=== PATIENT | female | born 1990 | race American Indian/Alaskan Native ===

== ENCOUNTER 2020-12-20 11:44 | Emergency (ER) | payer OTHER ==
--- NOTE | 2020-12-20 13:35 | Emergency Department Report ---
Blank Doc - Documentation Documentation: [facility] Consult Note # Demographics Consult Type: Acute Stroke Level 2 (4.5-24 hrs) Patient Location: Emergency Room First Name: Danita Last Name: Trav Date of : 1990 Age: 30 Gender: Female Time of Initial Page ( Time): 12/20/2020, 13:00 Time of Return Call ( Time): 12/20/2020, 13:01 # HPI History: 30yo F presents after being at a different hospital yesterday fo left arm numbness and gen weakness. CT done, then d/c. diagnosed with anxiety. then today was noted to "go limp". having left sided weakness and numbness, dysarthria. pt reprots she felt like she was having difficulty breathing. she had a headache. Last Known Normal: I have collected independent history specific to time last normal or last known well. We have collaborated with the provider and at this time, we have the most current timeline with the information that is available. # Scores Time of exam and NIHSS (): 12/20/2020, 13:27 Level of Consciousness 1a: [0] = Alert; keenly responsive LOC Questions 1b: [0] = Answers both questions correctly LOC Commands 1c: [0] = Performs both tasks correctly Best Gaze 2: [0] = Normal Visual 3: [0] = No visual loss Facial Palsy 4: [2] = Partial paralysis Motor Arm Left 5a: [2] = Some effort against gravity Motor Arm Right 5b: [0] = No drift Motor Leg Left 6a: [2] = Some effort against gravity Motor Leg Right 6b: [0] = No drift Limb Ataxia 7: [0] = Absent Sensory 8: [1] = [id number] sensory loss Best Language 9: [0] = No aphasia Dysarthria 10: [0] = Normal Extinction and Inattention 11: [0] = No abnormality NIHSS Total: 7 # Exam Motor: appears to given inconsistent effort in the left arm and leg. strong left leg pushing into the bed when lifting her right leg. # PMH-FH-SH Past Medical History: DVT/PE Medications: NOAC # Assessment Impression: Stroke Mimic this is not a TIA if MRI negative # Plan Thrombolytic/Intervention: NOT IV Thrombolytic or IA Intervention Thrombolytic Exclusion: > 4.5 hours Intraarterial Exclusion: clinically consistent with small vessel disease Imaging: (urgency: routine): MRI Brain with AND without contrast Other: would not pursue stroke work-up if MRI is negative I have discussed my recommendations with the referring provider Additional Recommendations: Further work-up based on MRI results # Logistics Telemedicine: Interactive 2 way audio and visual telecommunication technology was utilized during this visit
[2020-12-20 14:39] LABS: Bilirubin,Urine NEG (Negative); Blood,Urine LG (Negative); Color,Urine Yellow (Yellow); Hyaline Casts,Urine 1 /LPF; Mucus,Urine FEW /HPF; Urobilinogen,Urine < 2.0 mg/dL (<2.0)
--- NOTE | 2020-12-20 15:24 | Emergency Department Report ---
HPI - General Chief Complaint: Abdominal Pain Time Seen by Provider: 12/20/20 12:38 - HPI HPI: This is a 30-year-old female presents to the emergency department with complaint of a 1 day history of vaginal bleeding, some mild pelvic cramping, and some [place] with an episode of vomiting, all while . Patient says that she found out on Friday from a home test and then had the confirmed in a clinic. She just recently obtained an [facility] [employer] [employer] but has not yet established care with them and cannot remember their name currently. With this she is G1, P0. She has a past medical history of some mild asthma. She has not taken anything for symptoms prior to presentation today. ED Past Medical Hx - Past Medical History Previous Medical History?: No - Surgical History Past Surgical History?: No - Social History Smoking Status: Never Smoker Substance Use Type: None - Medications Home Medications: Home Medications Medication Instructions Recorded Confirmed Last Taken Type Nitrofurantoin [place]/M-Cryst 100 mg PO Q12HR #14 capsule 12/20/20 Unknown Rx [Macrobid CAP] ED Review of Systems ROS: Stated complaint: POSS MISCARRIAGE Other details as noted in HPI Comment: All other systems reviewed and negative Constitutional: denies: chills, fever Eyes: denies: eye pain, vision change ENT: denies: ear pain, throat pain Respiratory: denies: cough, shortness of breath Cardiovascular: denies: chest pain, palpitations Gastrointestinal: nausea, vomiting Genitourinary: other (Pelvic cramping, vaginal bleeding) Musculoskeletal: denies: back pain, arthralgia Skin: denies: rash, lesions Neurological: denies: headache, weakness Physical Exam - Physical Exam Vital Signs: Vital Signs 12/20/20 12/20/20 12/20/20 12:05 12:07 12:09 Temperature 98.3 F Pulse Rate 117 H Respiratory 18 Rate Blood Pressure 151/104 Blood Pressure 151/104 [Right] O2 Sat by Pulse 100 Oximetry Physical Exam: GENERAL: The patient is well-developed well-nourished. HENT: Normocephalic. Atraumatic. Patient has moist mucous membranes. EYES: Extraocular motions are intact. NECK: Supple. Trachea is midline. CHEST/LUNGS: Clear to auscultation. There is no respiratory distress noted. HEART/CARDIOVASCULAR: Regular. There is no tachycardia. There is no murmur. ABDOMEN: Abdomen is soft, nontender. Patient has normal bowel sounds. Obese habitus. SKIN: Skin is warm and dry. NEURO: The patient is awake, alert, and oriented. The patient is cooperative. The patient has no focal neurologic deficits. Normal speech. MUSCULOSKELETAL: There is no tenderness or deformity. There is no limitation range of motion. ED Course Vital Signs 12/20/20 12/20/20 12/20/20 12:05 12:07 12:09 Temperature 98.3 F Pulse Rate 117 H Respiratory 18 Rate Blood Pressure 151/104 Blood Pressure 151/104 [Right] O2 Sat by Pulse 100 Oximetry - Consultations Consultation #1: 12/20/20 16:24 Spoke to the [employer] on-call, Dr. Kyle, regarding the patient's presentation, the beta-hCG, and the patient's ultrasound findings concerning for a left-sided adnexal ectopic. He says to proceed with methotrexate and that the patient will need to follow-up on day 4 and day 7 outpatient for repeat beta-hCG and reevaluation's. ED Medical Decision Making - Lab Data Result diagrams: 12/20/20 15:24 12/20/20 15:24 Lab Results 12/20/20 12/20/20 12/20/20 Range/Units 13:47 15:24 15:24 WBC 11.4 H (4.5-11.0) K/mm3 RBC 4.37 (3.65-5.03) M/mm3 Hgb 11.9 (10.1-14.3) gm/dl Hct 36.0 (30.3-42.9) % MCV 82 (79-97) fl MCH 27 L (28-32) pg MCHC 33 (30-34) % RDW 13.9 (13.2-15.2) % Plt Count 268 (140-440) K/mm3 Lymph % (Auto) 8.6 L (13.4-35.0) % [place] % (Auto) 3.2 (0.0-7.3) % Eos % (Auto) 0.1 (0.0-4.3) % Baso % (Auto) 0.3 (0.0-1.8) % Lymph # (Auto) 1.0 L (1.2-5.4) K/mm3 [place] # (Auto) 0.4 (0.0-0.8) K/mm3 Eos # (Auto) 0.0 (0.0-0.4) K/mm3 Baso # (Auto) 0.0 (0.0-0.1) K/mm3 Seg Neutrophils % 87.8 H (40.0-70.0) % Seg Neutrophils # 10.0 H (1.8-7.7) K/mm3 Sodium 138 (137-145) mmol/L Potassium 4.3 (3.6-5.0) mmol/L Chloride 102.5 (98-107) mmol/L Carbon Dioxide 25 (22-30) mmol/L Anion Gap 15 mmol/L BUN 8 (7-17) mg/dL Creatinine 0.6 (0.6-1.2) mg/dL Estimated GFR > 60 ml/min BUN/Creatinine Ratio 13 % Glucose 106 H (65-100) mg/dL Calcium 9.7 (8.4-10.2) mg/dL HCG, Quant (0-4) mIU/mL Urine Color Yellow (Yellow) Urine Turbidity Slightly-cloudy (Clear) Urine pH 7.0 (5.0-7.0) Ur Specific [place] 1.019 (1.003-1.030) Urine Protein 30 mg/dl (Negative) mg/dL Urine Glucose (UA) Neg (Negative) mg/dL Urine Ketones Tr (Negative) mg/dL Urine Blood Lg (Negative) Urine Nitrite Neg (Negative) Urine Bilirubin Neg (Negative) Urine Urobilinogen < 2.0 (<2.0) mg/dL Ur Leukocyte Esterase Mod (Negative) Urine WBC (Auto) 11.0 H (0.0-6.0) /HPF Urine RBC (Auto) 16.0 (0.0-6.0) /HPF U Epithel Cells (Auto) 9.0 (0-13.0) /HPF Hyaline Casts 1 /LPF Urine Mucus Few /HPF Blood Type 12/20/20 12/20/20 Range/Units 15:24 15:24 WBC (4.5-11.0) K/mm3 RBC (3.65-5.03) M/mm3 Hgb (10.1-14.3) gm/dl Hct (30.3-42.9) % MCV (79-97) fl MCH (28-32) pg MCHC (30-34) % RDW (13.2-15.2) % Plt Count (140-440) K/mm3 Lymph % (Auto) (13.4-35.0) % [place] % (Auto) (0.0-7.3) % Eos % (Auto) (0.0-4.3) % Baso % (Auto) (0.0-1.8) % Lymph # (Auto) (1.2-5.4) K/mm3 [place] # (Auto) (0.0-0.8) K/mm3 Eos # (Auto) (0.0-0.4) K/mm3 Baso # (Auto) (0.0-0.1) K/mm3 Seg Neutrophils % (40.0-70.0) % Seg Neutrophils # (1.8-7.7) K/mm3 Sodium (137-145) mmol/L Potassium (3.6-5.0) mmol/L Chloride (98-107) mmol/L Carbon Dioxide (22-30) mmol/L Anion Gap mmol/L BUN (7-17) mg/dL Creatinine (0.6-1.2) mg/dL Estimated GFR ml/min BUN/Creatinine Ratio % Glucose (65-100) mg/dL Calcium (8.4-10.2) mg/dL HCG, Quant 1818 H (0-4) mIU/mL Urine Color (Yellow) Urine Turbidity (Clear) Urine pH (5.0-7.0) Ur Specific [place] (1.003-1.030) Urine Protein (Negative) mg/dL Urine Glucose (UA) (Negative) mg/dL Urine Ketones (Negative) mg/dL Urine Blood (Negative) Urine Nitrite (Negative) Urine Bilirubin (Negative) Urine Urobilinogen (<2.0) mg/dL Ur Leukocyte Esterase (Negative) Urine WBC (Auto) (0.0-6.0) /HPF Urine RBC (Auto) (0.0-6.0) /HPF U Epithel Cells (Auto) (0-13.0) /HPF Hyaline Casts /LPF Urine Mucus /HPF Blood Type O POSITIVE - Radiology Data Radiology results: report reviewed ULTRASOUND OBSTETRIC REASON FOR EXAM: pelvic pain TECHNIQUE: Transabdominal and transvaginal ultrasound was performed to evaluate a first trimester . COMPARISON: None available. FINDINGS: Uterus measures 8.9 cm. No IUP is visualized. There is a 1.3 cm fibroid at the anterior uterine fundus. Right ovary measures 4.1 cm. There is a 1.6 cm cystic structure in the right ovary, which may reflect a corpus luteum cyst/follicle. Normal color Doppler flow of the right ovary. The left ovary measures up to 4.6 cm. In the left adnexa adjacent to the left ovary, there is a 1.6 cm masslike structure with approximately 9 mm cystic structure without abnormal Doppler flow/hyperemia. Small volume free fluid in the cul-de-sac and left adnexa. IMPRESSION: 1. No IUP identified. Left adnexal cystic structure with trace free fluid in the cul-de-sac and left adnexa. This is consistent with left adnexal ectopic , until proven otherwise. In a he modynamically stable patient, consider short-term sonographic and beta hCG follow up. - Medical Decision Making This patient presents to the emergency department with some mild pelvic cramping, some mild to moderate vaginal bleeding, while . Patient's labs confirm with a beta hCG of about 1800. No significant anemia. Urinalysis shows a very mild urinary tract infection. The ultrasound shows concern for a left adnexal ectopic , although early. There is cystic structure in the left adnexa and some mild fluid in the cul-de-sac and no IUP. I spoke to the [employer] [facility] on-call, Dr. Kyle, who gave the instructions to give the patient methotrexate and that the patient will need to follow-up outpatient on day 4 and 7. I spoke to the patient regarding the lab and imaging findings, the diagnosis of ectopic , the need for methotrexate, and outpatient follow-up. She understands and agrees to the plan. The patient was given metho trexate and watched after administration without any reactions. The patient's blood type is O+ and therefore she does not need a RhoGam shot. She will return to the emergency department with any worsening of her symptoms or with any acute distress. Critical Care Time: No Critical care attestation.: If time is entered above; I have spent that time in minutes in the direct care of this critically ill patient, excluding procedure time. ED Disposition Clinical Impression: Elevated blood pressure reading Ectopic Qualifiers: Location of ectopic : tubal Intrauterine status: without intrauterine Laterality: left Qualified Code(s): O00.102 - Left tubal without intrauterine UTI (urinary tract infection) Qualifiers: Urinary tract infection type: acute cystitis Hematuria presence: without hematuria Qualified Code(s): N30.00 - Acute cystitis without hematuria Disposition: TO HOME OR SELFCARE Is pt being admited?: No Condition: Stable Instructions: Methotrexate Treatment for an Ectopic , Care After, Ectopic , Urinary Tract Infection, Adult, Abdominal Pain (ED) Additional Instructions: I have given you a referral for a local [employer] [employer] [facility], Dr. Kyle. Please call tomorrow for an appointment on Friday for follow-up on the ectopic and methotrexate given. Please take all medications as prescribed. Try to stay away from foods that are high in salt and caffeinated products. Keep a blood pressure log. Return to the emergency department with any worsening of your symptoms including increased pelvic pain or vaginal bleeding, new or concerning symptoms not addressed during this current emergency department visit, or with any acute distress. Prescriptions: Nitrofurantoin [place]/M-Cryst [Macrobid CAP] 100 mg PO Q12HR #14 capsule Referrals: LINA KYLE JR, MD [Staff Physician] - 12/25/20 (Please call tomorrow for an appointment on Friday. ) Time of Disposition: 17:17
--- NOTE | 2020-12-20 15:33 | Ultrasound Report ---
ULTRASOUND OBSTETRIC REASON FOR EXAM: pelvic pain TECHNIQUE: Transabdominal and transvaginal ultrasound was performed to evaluate a first trimester pre gnancy. COMPARISON: None available. FINDINGS: Uterus measures 8.9 cm. No IUP is visualized. There is a 1.3 cm fibroid at the anterior uterine fundu s. Right ovary measures 4.1 cm. There is a 1.6 cm cystic structure in the right ovary, which may reflect a corpus luteum cyst/follicle. Normal color Doppler flow of the right ovary. The left ovary measures up to 4.6 cm. In the left adnexa adjacent to the left ovary, there is a 1.6 c m masslike structure with approximately 9 mm cystic structure without abnormal Doppler flow/hyperemia . Small volume free fluid in the cul-de-sac and left adnexa. IMPRESSION: 1. No IUP identified. Left adnexal cystic structure with trace free fluid in the cul-de-sac and left adnexa. This is consistent with left adnexal ectopic , until proven otherwise. In a hemodyna mically stable patient, consider short-term sonographic and beta hCG follow up. Findings were discussed with ordering provider by phone on 12/20/2020 at 2:20 PM. Signer Name: Francisco Javier Campuzano MD Signed: 12/20/2020 3:28 PM Workstation Name: [email or web address]
[2020-12-20 15:35] LABS: Basophils % (Auto) 0.3 % (0.0-1.8); Eosinophils % (Auto) 0.1 % (0.0-4.3); Hemoglobin 11.9 gm/dl (10.1-14.3); Lymphocytes % (Auto) 8.6 % (13.4-35.0); Mean Corpuscular HGB Conc 33 % (30-34); Mean Corpuscular Volume 82 fl (79-97); Monocytes # (Auto) 0.4 K/mm3 (0.0-0.8); Monocytes % (Auto) 3.2 % (0.0-7.3); Platelet Count 268 K/mm3 (140-440); Red Blood Count 4.37 M/mm3 (3.65-5.03); Red Cell Distribution Width 13.9 % (13.2-15.2)
[2020-12-20 15:53] LABS: Blood Urea Nitrogen 8 mg/dL (7-17); Calcium 9.7 mg/dL (8.4-10.2); Hemolysis Index 21
[2020-12-20 16:00] LABS: BUN/Creatinine Ratio 13
[2020-12-20 18:47] VITALS: BP 162/86
== END 2020-12-20 18:48 | disposition home or self-care (01) ==
LOC: ED 11:44
DX: O00.91 Unspecified ectopic pregnancy with intrauterine pregnancy (principal); O23.41 Unspecified infection of urinary tract in pregnancy, first trimester; O26.891 Other specified pregnancy related conditions, first trimester; R03.0 Elevated blood-pressure reading, without diagnosis of hypertension; Z79.899 Other long term (current) drug therapy
CPT/HCPCS: 36415; 76801; 76817; 80048; 81001; 84702; 85025; 86900; 86901; 87086; 96372; 99284; J9260